=== PATIENT | female | born 1960 | race Caucasian/White ===

== ENCOUNTER → 2016-08-23 | Outpatient (CLI) | payer OTHER ==
[~2016-08-23] MED LIST: ASPI325T OR; ISOS30BRAN OR; LISI40TA OR; LOPR50TA OR; NITR0.4S SL; RED YEAST PO; XANA0.5T OR; ZOCO40TA OR
== END ==
LOC: M WUC 11:15
PROVIDERS: ATTEND Family Medicine
DX: E11.9 Type 2 diabetes mellitus without complications (principal)

== ENCOUNTER → 2016-12-14 | Outpatient (CLI) | payer OTHER ==
[2016-12-17 00:06] LABS: NORDOXEPIN 26 ng/mL (Not Estab.); TOTAL (DOX+NORDOX) 49 ng/mL (50-150)
== END ==
LOC: M WUC 10:49
PROVIDERS: ATTEND Psychiatry & Neurology Psychiatry
DX: F41.9 Anxiety disorder, unspecified (principal)

== ENCOUNTER → 2017-06-16 | Outpatient (REF) | payer OTHER | LOC: M SFHCPLAZ 09:36 | DX: E11.9 Type 2 diabetes mellitus without complications (principal); E78.4 Other hyperlipidemia ==

== ENCOUNTER → 2017-07-05 | Outpatient (CLI) | payer OTHER | LOC: M RAD 14:01 | DX: Z12.2 Encounter for screening for malignant neoplasm of respiratory organs (principal); R91.8 Other nonspecific abnormal finding of lung field; F17.200 Nicotine dependence, unspecified, uncomplicated | CPT/HCPCS: G0297 ==

== ENCOUNTER → 2017-08-01 | Outpatient (REF) | payer OTHER | LOC: M SFHCPLAZ 11:47 | DX: G90.09 Other idiopathic peripheral autonomic neuropathy (principal) ==

== ENCOUNTER → 2017-08-08 | Outpatient (CLI) | payer OTHER ==
[2017-08-08 17:45] LABS: ALBUMIN 3.7 GM/DL (3.2-5.2); ALBUMIN/GLOBULIN RATIO 1.28 (1.00-1.93); ALKALINE PHOSPHATASE 68 U/L (45-117); ALT/SGPT 29 U/L (12-78); ANION GAP 3 MEQ/L (8-16); AST/SGOT 21 U/L (7-37); BILIRUBIN,TOTAL 0.2 MG/DL (0.2-1.0); BLOOD UREA NITROGEN 14 MG/DL (7-18); CALCIUM LEVEL 8.5 MG/DL (8.5-10.1); CARBON DIOXIDE LEVEL 30 MEQ/L (21-32); CHLORIDE LEVEL 109 MEQ/L (98-107); CREATININE FOR GFR 0.86 MG/DL (0.55-1.30); FREE T4 0.71 NG/DL (0.76-1.46); GLOMERULAR FILTRATION RATE > 60.0 (>51); GLUCOSE, FASTING 73 MG/DL (70-100); POTASSIUM SERUM 4.8 MEQ/L (3.5-5.1); SODIUM LEVEL 142 MEQ/L (136-145); TOTAL PROTEIN 6.6 GM/DL (6.4-8.2)
[2017-08-08 17:47] LABS: BASO % 0.3 % (0.0-1.0); EOS # 0.5 10^3/uL (0.0-0.50); EOS % 4.3 % (0.0-3.0); HEMATOCRIT 39.2 % (36.0-47.0); HEMOGLOBIN 12.2 g/dl (12.0-16.0); IMMATURE GRANULOCYTE % 0.4 % (0-3.0); LYMPH # 4.2 10^3/uL (1.5-4.5); MEAN CORPUSCULAR HEMOGLOBIN 29.3 pg (27.0-33.0); MEAN CORPUSCULAR HGB CONC 31.1 g/dl (32.0-36.5); MONO # 0.6 10^3/uL (0.0-0.8); MONO % 5.7 % (0.0-5.0); NEUTROPHILS # 5.5 10^3/uL (1.8-7.7); NEUTROPHILS % 50.3 % (36.0-66.0); PLATELET COUNT, AUTOMATED 235 10^3/uL (150-450); RED BLOOD COUNT 4.17 10^6/uL (4.00-5.40); RED CELL DISTRIBUTION WIDTH 12.5 % (11.5-14.5); WHITE BLOOD COUNT 10.9 10^3/uL (4.0-10.0)
[2017-08-08 18:30] LABS: ESTIMATED AVERAGE GLUCOSE 186 MG/DL (60-110); HEMOGLOBIN A1c 8.1 %
[2017-08-08 19:45] LABS: VITAMIN B12 LEVEL 184 PG/ML (247-911)
== END ==
LOC: M WUC 13:58
DX: G62.89 Other specified polyneuropathies (principal); E11.9 Type 2 diabetes mellitus without complications
CPT/HCPCS: 84443

== ENCOUNTER → 2017-08-08 | Outpatient (CLI) | payer OTHER ==
[2017-08-11 00:07] LABS: DOXEPIN 33 ng/mL (Not Estab.); NORDOXEPIN 34 ng/mL (Not Estab.); TOTAL (DOX+NORDOX) 67 ng/mL (50-150)
== END ==
LOC: M WUC 14:03
DX: F31.30 Bipolar disorder, current episode depressed, mild or moderate severity, unspecified (principal)
CPT/HCPCS: 80335

== ENCOUNTER 2017-10-18 18:50 | Emergency (ER) | payer OTHER ==
[2017-10-18 19:49] LABS: BEDSIDE GLUCOSE 166 MG/DL (70-105)
[2017-10-18 20:37] LABS: BASO % 0.2 % (0.0-1.0); EOS # 0.8 10^3/uL (0.0-0.50); EOS % 5.9 % (0.0-3.0); HEMATOCRIT 40.7 % (36.0-47.0); HEMOGLOBIN 12.9 g/dl (12.0-15.5); IMMATURE GRANULOCYTE % 0.4 % (0-3.0); LYMPH # 4.5 10^3/uL (1.5-4.5); LYMPH % 32.8 % (24.0-44.0); MEAN CORPUSCULAR HEMOGLOBIN 28.4 pg (27.0-33.0); MEAN CORPUSCULAR HGB CONC 31.7 g/dl (32.0-36.5); MEAN CORPUSCULAR VOLUME 89.6 fl (80.0-96.0); MONO # 1.1 10^3/uL (0.0-0.8); NEUTROPHILS # 7.2 10^3/uL (1.8-7.7); NEUTROPHILS % 52.7 % (36.0-66.0); PLATELET COUNT, AUTOMATED 312 10^3/uL (150-450); RED BLOOD COUNT 4.54 10^6/uL (4.00-5.40); RED CELL DISTRIBUTION WIDTH 12.8 % (11.5-14.5); WHITE BLOOD COUNT 13.6 10^3/uL (4.0-10.0)
[2017-10-18] MEDS: KETOROLAC 30 MG/ML VIAL (J1885) IV (20:43)
[2017-10-18] MEDS: NS 1,000 ML IV (20:43)
[2017-10-18 20:45] LABS: KETONE, URINE AUTO RFX NEGATIVE (NEGATIVE); NITRITE, URINE AUTO RFX NEGATIVE (NEGATIVE); RBC, URINE AUTO RFX 3 /HPF (0-3); SQUAM EPITHELIAL CELL UR AURFX 2 /HPF (0-6)
[2017-10-18 20:46] LABS: LEUKOCYTE ESTERASE UR AUTO RFX 2+ (NEGATIVE); WBC, URINE AUTO RFX 16 /HPF (0-3)
[2017-10-18 21:21] LABS: ALBUMIN/GLOBULIN RATIO 1.11 (1.00-1.93); ALKALINE PHOSPHATASE 88 U/L (45-117); ALT/SGPT 21 U/L (12-78); ANION GAP 7 MEQ/L (8-16); AST/SGOT 13 U/L (7-37); BILIRUBIN,DIRECT < 0.1 MG/DL (0.0-0.2); BILIRUBIN,TOTAL 0.2 MG/DL (0.2-1.0); BLOOD UREA NITROGEN 13 MG/DL (7-18); CALCIUM LEVEL 8.9 MG/DL (8.5-10.1); CARBON DIOXIDE LEVEL 29 MEQ/L (21-32); CHLORIDE LEVEL 104 MEQ/L (98-107); CREATININE FOR GFR 1.03 MG/DL (0.55-1.30); GLOMERULAR FILTRATION RATE 58.8 (>51); GLUCOSE, FASTING 155 MG/DL (70-100); LIPASE 255 U/L (73-393); POTASSIUM SERUM 4.3 MEQ/L (3.5-5.1); SODIUM LEVEL 140 MEQ/L (136-145); TOTAL PROTEIN 7.6 GM/DL (6.4-8.2)
[2017-10-18] MEDS ORDERED: CIPROFLOXACIN 500 MG TAB PO (22:00)
== END 2017-10-18 22:06 | disposition home or self-care (01) ==
LOC: M ED 18:50
DX: N30.00 Acute cystitis without hematuria (principal); K59.00 Constipation, unspecified; E11.9 Type 2 diabetes mellitus without complications; I10 Essential (primary) hypertension; F33.9 Major depressive disorder, recurrent, unspecified; F41.9 Anxiety disorder, unspecified; F17.210 Nicotine dependence, cigarettes, uncomplicated; Z86.69 Personal history of other diseases of the nervous system and sense organs; Z98.890 Other specified postprocedural states; Z79.82 Long term (current) use of aspirin
CPT/HCPCS: J1885

== ENCOUNTER 2017-11-27 16:19 | Emergency (ER) | payer OTHER ==
[2017-11-27] MEDS: NORCO, ANEXSIA 5/325MG TABLET (HYDROcodone/ACETAMINOPHEN) PO (17:37)
[2017-11-27 17:54] LABS: HEMATOCRIT 41.5 % (36.0-47.0); HEMOGLOBIN 13.4 g/dl (12.0-15.5); MEAN CORPUSCULAR HEMOGLOBIN 29.1 pg (27.0-33.0); MEAN CORPUSCULAR HGB CONC 32.3 g/dl (32.0-36.5); PLATELET COUNT, AUTOMATED 246 10^3/uL (150-450); RED BLOOD COUNT 4.61 10^6/uL (4.00-5.40); RED CELL DISTRIBUTION WIDTH 13.2 % (11.5-14.5); WHITE BLOOD COUNT 17.3 10^3/uL (4.0-10.0)
[2017-11-27 18:29] LABS: ACETAMINOPHEN LEVEL < 2.0 UG/ML (10.0-30.0); ALBUMIN/GLOBULIN RATIO 1.08 (1.00-1.93); ALKALINE PHOSPHATASE 71 U/L (45-117); ALT/SGPT 31 U/L (12-78); ANION GAP 6 MEQ/L (8-16); AST/SGOT 17 U/L (7-37); BILIRUBIN,DIRECT < 0.1 MG/DL (0.0-0.2); BILIRUBIN,TOTAL 0.3 MG/DL (0.2-1.0); BLOOD UREA NITROGEN 17 MG/DL (7-18); CALCIUM LEVEL 8.6 MG/DL (8.5-10.1); CARBON DIOXIDE LEVEL 27 MEQ/L (21-32); CHLORIDE LEVEL 108 MEQ/L (98-107); CREATININE FOR GFR 1.21 MG/DL (0.55-1.30); ETHYL ALCOHOL (ETHANOL) 0.003 % (0.000-0.010); GLOMERULAR FILTRATION RATE 48.8 (>51); GLUCOSE, FASTING 127 MG/DL (70-100); POTASSIUM SERUM 4.6 MEQ/L (3.5-5.1); SALICYLATE LEVEL 5.6 MG/DL (5.0-30.0); SODIUM LEVEL 141 MEQ/L (136-145); TOTAL PROTEIN 7.7 GM/DL (6.4-8.2)
[2017-11-27 19:42] LABS: KETONE, URINE AUTO RFX TRACE mg/dL (NEGATIVE); MUCUS, URINE RFX SMALL (NEGATIVE); NITRITE, URINE AUTO RFX NEGATIVE (NEGATIVE); RBC, URINE AUTO RFX 2 /HPF (0-3); SPECIFIC GRAVITY UR AUTO RFX 1.023 (1.002-1.035); SQUAM EPITHELIAL CELL UR AURFX 1 /HPF (0-6); WBC, URINE AUTO RFX 10 /HPF (0-3)
[2017-11-27 19:49] LABS: LEUKOCYTE ESTERASE UR AUTO RFX 2+ (NEGATIVE)
[2017-11-27 19:54] LABS: AMPHETAMINES LEVEL URINE NEGATIVE (NEGATIVE); BARBITURATES URINE NEGATIVE (NEGATIVE); BENZODIAZEPINES URINE POSITIVE (NEGATIVE); CANNABINOIDS URINE POSITIVE (NEGATIVE); COCAINE METABOLITE URINE NEGATIVE (NEGATIVE); METHADONE URINE NEGATIVE (NEGATIVE); OPIATES URINE POSITIVE (NEGATIVE); PHENCYCLIDINE URINE NEGATIVE (NEGATIVE)
[2017-11-27] MEDS ORDERED: LORazepam 0.5 MG TAB PO (19:54)
== END 2017-11-27 21:00 | disposition left against medical advice (07) ==
LOC: M ED 16:19
DX: F41.9 Anxiety disorder, unspecified (principal); M25.551 Pain in right hip; M25.552 Pain in left hip; S90.512A Abrasion, left ankle, initial encounter; W10.8XXA Fall (on) (from) other stairs and steps, initial encounter; Y92.89 Other specified places as the place of occurrence of the external cause; M54.5 Low back pain; I10 Essential (primary) hypertension; F32.9 Major depressive disorder, single episode, unspecified; E11.9 Type 2 diabetes mellitus without complications; F17.210 Nicotine dependence, cigarettes, uncomplicated; Z79.899 Other long term (current) drug therapy; Z79.84 Long term (current) use of oral hypoglycemic drugs
CPT/HCPCS: 72170

== ENCOUNTER → 2017-12-31 | Outpatient (CLI) | payer OTHER ==
[2017-12-31 18:38] LABS: ALBUMIN 4.1 GM/DL (3.2-5.2); ALBUMIN/GLOBULIN RATIO 1.14 (1.00-1.93); ALKALINE PHOSPHATASE 64 U/L (45-117); ALT/SGPT 27 U/L (12-78); ANION GAP 9 MEQ/L (8-16); AST/SGOT 16 U/L (7-37); BILIRUBIN,TOTAL 0.3 MG/DL (0.2-1.0); BLOOD UREA NITROGEN 8 MG/DL (7-18); CALCIUM LEVEL 8.8 MG/DL (8.5-10.1); CARBON DIOXIDE LEVEL 27 MEQ/L (21-32); CHLORIDE LEVEL 103 MEQ/L (98-107); CHOLESTEROL LEVEL 151 MG/DL (<200); CHOLESTEROL RISK RATIO 2.516 (<5); GLOMERULAR FILTRATION RATE > 60.0 (>51); GLUCOSE, FASTING 149 MG/DL (70-100); HDL CHOLESTEROL 60 MG/DL (>40); LDL CHOLESTEROL 71.2 MG/DL (<100); NON-HDL-C 91 MG/DL; POTASSIUM SERUM 4.4 MEQ/L (3.5-5.1); SODIUM LEVEL 139 MEQ/L (136-145); TOTAL PROTEIN 7.7 GM/DL (6.4-8.2); TRIGLYCERIDES LEVEL 99 MG/DL (<150)
[2017-12-31 18:43] LABS: ESTIMATED AVERAGE GLUCOSE 146 MG/DL (60-110); HEMOGLOBIN A1c 6.7 %
[2017-12-31 18:46] LABS: CREATININE, URINE 33.1 MG/DL; MALB URINE SIEMENS < 5.0 MG/L; MAU/CREAT RATIO 15.1 MCG/MG (0.0-30.0)
== END ==
LOC: M WUC 11:36
DX: E11.9 Type 2 diabetes mellitus without complications (principal); E78.4 Other hyperlipidemia
CPT/HCPCS: 80053

== ENCOUNTER → 2017-12-31 | Outpatient (CLI) | payer OTHER ==
[2017-12-31 18:37] LABS: RHEUMATOID FACTOR QUANT < 10.0 IU/ML (<15.0); TOTAL PROTEIN 7.6 GM/DL (6.4-8.2)
[2017-12-31 18:43] LABS: ESTIMATED AVERAGE GLUCOSE 148 MG/DL (60-110); HEMOGLOBIN A1c 6.8 %
[2017-12-31 19:50] LABS: ERYTHROCYTE SEDIMENTATION RATE 8 mm/hr (0-30)
[2018-01-02 09:51] LABS: FOLATE > 24.0 NG/ML (>5.4); VITAMIN B12 LEVEL > 2000 PG/ML (247-911)
[2018-01-03 14:34] LABS: ALBUMIN 4.54 GM/DL (3.29-5.55); ALBUMIN % 59.7 % (55.8-66.1); ALPHA-1-GLOBULIN % 4.1 % (2.9-4.9); ALPHA-1-GLOBULINS 0.31 GM/DL (0.17-0.41); ALPHA-2-GLOBULINS % 13.2 % (7.1-11.8); BETA-1-GLOBULINS % 5.6 % (4.7-7.2); BETA-2-GLOBULINS % 4.1 % (3.2-6.5); GAMMA GLOBULIN % 13.3 % (11.1-18.8)
[2018-01-03 14:35] LABS: BETA-1-GLOBULINS 0.43 GM/DL (0.28-0.60); BETA-2-GLOBULINS 0.31 GM/DL (0.19-0.55); GAMMA GLOBULINS 1.01 GM/DL (0.65-1.58)
[2018-01-07 14:50] LABS: ANTI DOUBLE STRAND-DNA AB <1 IU/mL (0-9); ANTINUCLEAR ANTIBODIES DIRECT Negative (Negative); CERULOPLASMIN 22.8 mg/dL (19.0-39.0); COPPER PLASMA 110 ug/dL (72-166); LEAD BLOOD ADULT 1 ug/dL (0-4); MERCURY LEVEL None Detected ug/L (0.0-14.9); SJOGREN'S ANTI SS-A <0.2 AI (0.0-0.9); SJOGREN'S ANTI SS-B <0.2 AI (0.0-0.9); VITAMIN B1 LEVEL WHOLE BLOOD 143.8 nmol/L (66.5-200.0); VITAMIN B6,PYRIDOXAL PHOSPHATE 9.1 ug/L (2.0-32.8); VITAMIN E(ALPHA TOCOPHEROL) 10.5 mg/L (7.0-25.1)
== END ==
LOC: M WUC 11:29
DX: G61.9 Inflammatory polyneuropathy, unspecified (principal)
CPT/HCPCS: 82525

== ENCOUNTER → 2019-02-21 | Outpatient (CLI) | payer OTHER ==
[~2019-02-21] MED LIST changes: +AMBI10TA PO; +CIPR-249 PO; +DOXE25CA PO; +GABA600T4 PO; +LOVA40TA PO; +LYRI150C PO; +METF10004 PO; +REDCAP9 PO; +VITA-112 PO; +ZOFR4TAB14 SL
[2019-02-24 00:13] LABS: DOXEPIN 106 ng/mL (Not Estab.)
== END ==
LOC: M WUC 09:27
PROVIDERS: ATTEND Psychiatry & Neurology Psychiatry
DX: F41.1 Generalized anxiety disorder (principal)
CPT/HCPCS: 36415; G0480

== ENCOUNTER 2020-01-31 18:38 | Emergency (ER) | payer OTHER ==
[~2020-01-31] VITALS: Ht 162.6 cm; Wt 70.4 kg
[2020-01-31] MEDS ORDERED: RISP0.5T3 (18:48)
[2020-01-31] MEDS ORDERED: GABA-843 (18:48)
[2020-01-31] MEDS ORDERED: PREG150C (18:48)
[2020-01-31] MEDS ORDERED: ZOLP10TA2 (18:48)
[2020-01-31] MEDS ORDERED: DOXE100CA (18:48)
[2020-01-31] MEDS ORDERED: ESCI20TA (18:48)
[2020-01-31] MEDS ORDERED: lisinopriL 20 MG TAB PO ONE (19:30)
[2020-01-31] MEDS ORDERED: NS 1,000 ML IV ONE (19:30)
[2020-01-31] MEDS ORDERED: HumuLIN R (REGULAR) INSULIN (NovoLIN R) **100U/ML** PER UNIT IV ONE ×2 (19:30→21:00)
[2020-01-31 20:16] VITALS: BP 163/106
[2020-01-31 20:30] LABS: VENOUS HCO3 23.5 MEQ/L (23.0-27.0); VENOUS O2 SATURATION 97.4 % (60.0-80.0); VENOUS PARTIAL PRESSURE CO2 42.9 mmHg (38.0-50.0); VENOUS PARTIAL PRESSURE O2 99.7 mmHg (30.0-50.0); VENOUS PH 7.357 UNITS (7.330-7.430); VENOUS STANDARD HCO3 22.8 MEQ/L; VENOUS TOTAL CO2 24.8 MEQ/L (24.0-28.0)
[2020-01-31 20:34] LABS: BASO # 0.1 10^3/uL (0.0-0.2); BASO % 0.4 % (0.0-1.0); EOS # 0.3 10^3/uL (0.0-0.5); EOS % 2.4 % (0.0-3.0); HEMATOCRIT 38.2 % (36.0-47.0); HEMOGLOBIN 12.7 g/dl (12.0-15.5); LYMPH # 3.8 10^3/uL (1.5-5.0); LYMPH % 31.6 % (24.0-44.0); MEAN CORPUSCULAR HEMOGLOBIN 28.9 pg (27.0-33.0); MEAN CORPUSCULAR HGB CONC 33.2 g/dl (32.0-36.5); MONO # 0.8 10^3/uL (0.0-0.8); MONO % 6.6 % (0.0-5.0); NEUTROPHILS % 58.2 % (36.0-66.0); PLATELET COUNT, AUTOMATED 221 10^3/uL (150-450); RED BLOOD COUNT 4.39 10^6/uL (4.00-5.40); WHITE BLOOD COUNT 12.1 10^3/uL (4.0-10.0)
[2020-01-31 20:44] LABS: AMPHETAMINES LEVEL URINE NEGATIVE (NEGATIVE); BARBITURATES URINE NEGATIVE (NEGATIVE); BENZODIAZEPINES URINE NEGATIVE (NEGATIVE); CANNABINOIDS URINE NEGATIVE (NEGATIVE); COCAINE METABOLITE URINE NEGATIVE (NEGATIVE); METHADONE URINE NEGATIVE (NEGATIVE); OPIATES URINE NEGATIVE (NEGATIVE); PHENCYCLIDINE URINE NEGATIVE (NEGATIVE)
[2020-01-31 20:52] LABS: OSMOLALITY SERUM 301 MOSM/KG (275-295)
[2020-01-31] MEDS ORDERED: metFORMIN (GLUCOPHAGE) 1000 MG TABLET PO ONE (21:00)
[2020-01-31 21:05] LABS: ACETONE/KETONE 2.37 MG/DL (<2.81); ALBUMIN 3.8 GM/DL (3.2-5.2); ALT/SGPT 72 U/L (12-78); BILIRUBIN,DIRECT 0.1 MG/DL (0.0-0.2); BILIRUBIN,TOTAL 0.2 MG/DL (0.2-1.0); BLOOD UREA NITROGEN 20 MG/DL (7-18); CALCIUM LEVEL 9.3 MG/DL (8.5-10.1); CARBON DIOXIDE LEVEL 25 MEQ/L (21-32); CHLORIDE LEVEL 92 MEQ/L (98-107); CK-MB VALUE MASS 1.4 NG/ML (<3.6); CPK CREATINE PHOSPHOKINASE 319 U/L (26-192); CREATININE FOR GFR 1.33 MG/DL (0.55-1.30); ETHYL ALCOHOL (ETHANOL) < 0.003 % (0.000-0.010); GLOMERULAR FILTRATION RATE 43.5 (>51); GLUCOSE, FASTING 553 MG/DL (70-100); LIPASE 367 U/L (73-393); MB/CK RELATIVE INDEX 0.44 (< OR =4); POTASSIUM SERUM 4.6 MEQ/L (3.5-5.1); SODIUM LEVEL 126 MEQ/L (136-145); TOTAL PROTEIN 7.6 GM/DL (6.4-8.2); TROPONIN I < 0.02 NG/ML (< 0.10)
[2020-01-31 21:31] LABS: ESTIMATED AVERAGE GLUCOSE 355 MG/DL (60-110)
[2020-01-31 21:33] LABS: HEMOGLOBIN A1c > 14.0 %
[2020-01-31 21:40] VITALS: BP 119/75
[2020-01-31] MEDS ORDERED: LISI10TA4 PO (21:54)
[2020-01-31] MEDS ORDERED: METF500T13 PO (21:54)
== END 2020-01-31 22:10 | disposition home or self-care (01) ==
LOC: M ED 18:38
DX: E11.65 Type 2 diabetes mellitus with hyperglycemia (principal); I11.9 Hypertensive heart disease without heart failure; R00.0 Tachycardia, unspecified; F17.200 Nicotine dependence, unspecified, uncomplicated; Z91.14 Patient's other noncompliance with medication regimen; Z79.899 Other long term (current) drug therapy
CPT/HCPCS: 80048; 80076; 80307; 81001; 82010; 82550; 82553; 82803; 83036; 83690; 83930; 85025; 87086; 93041; 96361; 96374; 96376; 99284; G0480

== ENCOUNTER → 2020-05-12 | Outpatient (REF) | payer OTHER, MEDICAID, MEDICARE ==
[~2020-05-12] MED LIST changes: +DOXE100CA; +ESCI20TA; +GABA-843; +LISI10TA4 PO; +METF500T13 PO; +PREG150C; +RISP-7; +ZOLP10TA2
[2020-05-12 14:42] LABS: BASO # 0.1 10^3/uL (0.0-0.2); BASO % 0.3 % (0.0-1.0); EOS # 0.4 10^3/uL (0.0-0.5); EOS % 2.8 % (0.0-3.0); HEMATOCRIT 47.9 % (36.0-47.0); HEMOGLOBIN 14.9 g/dl (12.0-15.5); MEAN CORPUSCULAR HGB CONC 31.1 g/dl (32.0-36.5); MONO # 0.8 10^3/uL (0.0-0.8); MONO % 5.7 % (0.0-5.0); NEUTROPHILS % 69.8 % (36.0-66.0); PLATELET COUNT, AUTOMATED 261 10^3/uL (150-450); RED BLOOD COUNT 5.32 10^6/uL (4.00-5.40); WHITE BLOOD COUNT 14.4 10^3/uL (4.0-10.0)
[2020-05-12 15:12] LABS: CALCIUM LEVEL 9.3 MG/DL (8.8-10.2); CREATININE FOR GFR 1.42 MG/DL (0.55-1.30); GLOMERULAR FILTRATION RATE 40.2 (>45); POTASSIUM SERUM 4.7 MEQ/L (3.5-5.1)
== END ==
LOC: M SFHCPLAZ 12:07
PROVIDERS: ATTEND Family Medicine
DX: R00.0 Tachycardia, unspecified (principal)
CPT/HCPCS: 36415; 80048; 85025; G0463

== ENCOUNTER → 2020-05-28 | Outpatient (CLI) | payer OTHER, MEDICAID ==
[~2020-05-28] MED LIST changes: -ESCI20TA; +ESCI20TA16; +GABA-282; -GABA-843
--- NOTE | 2020-05-28 10:16 | REP ---
INDICATION: FLANK PAIN COMPARISON: 10/18/2017 TECHNIQUE: Axial noncontrast images from the lung bases to the pubic symphysis with coronal and sagittal reformations. This CT examination was performed using the following dose reduction techniques: Automated exposure control, adjustment of mA and/or kv according to the patient's size, and use of iterative reconstruction technique. FINDINGS: Liver is mildly enlarged and suggests fatty infiltration. Spleen, gallbladder, pancreas, bilateral adrenal glands and kidneys are essentially normal. Specifically, no perinephric stranding, hydroureteronephrosis, intrarenal or obstructing ureteral calculi are identified. The enteric system is without obstruction or acute inflammatory process. Pelvis demonstrates normal bladder and evidence for prior hysterectomy. Phleboliths noted in the pelvis. No ascites. No free air. No adenopathy. Atherosclerotic changes to the aorta noted without aneurysm. Musculoskeletal structures demonstrate degenerative changes. Lung bases are clear. IMPRESSION: Mild hepatomegaly and hepatosteatosis suggested. Normal appearance of the urinary tract system by noncontrast evaluation. <Electronically signed by Luis Antonio Thomason > 05/28/20 1012
== END ==
LOC: M RAD 09:34
PROVIDERS: ATTEND Family Medicine
DX: R10.9 Unspecified abdominal pain (principal)

== ENCOUNTER → 2020-07-11 | Outpatient (REF) | payer OTHER, MEDICAID, MEDICARE ==
[~2020-07-11] MED LIST changes: +LISI10TA22 PO; -LISI10TA4 PO
[2020-07-11 12:56] LABS: ALBUMIN 3.7 GM/DL (3.2-5.2); ALT/SGPT 31 U/L (12-78); BILIRUBIN,TOTAL 0.2 MG/DL (0.2-1.0); BLOOD UREA NITROGEN 16 MG/DL (7-18); CARBON DIOXIDE LEVEL 26 MEQ/L (21-32); CHLORIDE LEVEL 103 MEQ/L (98-107); CHOLESTEROL LEVEL 209 MG/DL (<200); CHOLESTEROL RISK RATIO 4.265 (<5); CREATININE FOR GFR 0.92 MG/DL (0.55-1.30); GLOMERULAR FILTRATION RATE > 60.0 (>45); GLUCOSE, FASTING 160 MG/DL (70-100); HDL CHOLESTEROL 49 MG/DL (>40); LDL CHOLESTEROL 119 MG/DL (<100); NON-HDL-C 160 MG/DL; POTASSIUM SERUM 5.3 MEQ/L (3.5-5.1); SODIUM LEVEL 136 MEQ/L (136-145); TOTAL 25(OH) VITAMIN D 48.6 NG/ML (30.0-100.0); TOTAL PROTEIN 7.1 GM/DL (6.4-8.2); TRIGLYCERIDES LEVEL 203 MG/DL (<150)
== END ==
LOC: M SFHCPLAZ 09:23
PROVIDERS: ATTEND Family Medicine
DX: E55.9 Vitamin D deficiency, unspecified (principal); E11.9 Type 2 diabetes mellitus without complications; E78.5 Hyperlipidemia, unspecified; I10 Essential (primary) hypertension; R00.0 Tachycardia, unspecified

== ENCOUNTER → 2020-07-25 | Outpatient (REF) | payer OTHER, MEDICAID, MEDICARE ==
[2020-07-25 14:28] LABS: BLOOD UREA NITROGEN 26 MG/DL (7-18); CALCIUM LEVEL 9.3 MG/DL (8.8-10.2); CARBON DIOXIDE LEVEL 31 MEQ/L (21-32); CHLORIDE LEVEL 106 MEQ/L (98-107); CREATININE FOR GFR 0.95 MG/DL (0.55-1.30); GLOMERULAR FILTRATION RATE > 60.0 (>45); GLUCOSE, FASTING 182 MG/DL (70-100); POTASSIUM SERUM 4.7 MEQ/L (3.5-5.1); SODIUM LEVEL 139 MEQ/L (136-145)
[2020-07-25 14:39] LABS: MAU/CREAT RATIO 19.7 MCG/MG (0.0-30.0)
== END ==
LOC: M SFHCPLAZ 11:19
PROVIDERS: ATTEND Family Medicine
DX: E11.65 Type 2 diabetes mellitus with hyperglycemia (principal); E87.5 Hyperkalemia
CPT/HCPCS: 36415; 80048; 82043; G0463

== ENCOUNTER → 2021-06-24 | Outpatient (CLI) | payer OTHER, MEDICAID ==
[2021-06-24 12:49] LABS: MALB URINE SIEMENS 68.6 MG/L; MAU/CREAT RATIO 42.6 MCG/MG (0.0-30.0)
[2021-06-24 13:18] LABS: ALBUMIN 3.7 GM/DL (3.2-5.2); ALT/SGPT 30 U/L (12-78); BILIRUBIN,TOTAL 0.1 MG/DL (0.2-1.0); BLOOD UREA NITROGEN 20 MG/DL (7-18); CALCIUM LEVEL 9.7 MG/DL (8.8-10.2); CARBON DIOXIDE LEVEL 28 MEQ/L (21-32); CHLORIDE LEVEL 105 MEQ/L (98-107); CHOLESTEROL LEVEL 209 MG/DL (<200); CHOLESTEROL RISK RATIO 4.098 (<5); CREATININE FOR GFR 0.87 MG/DL (0.55-1.30); GLOMERULAR FILTRATION RATE > 60.0 (>45); GLUCOSE, FASTING 92 MG/DL (70-100); HDL CHOLESTEROL 51 MG/DL (>40); LDL CHOLESTEROL 129 MG/DL (<100); NON-HDL-C 158 MG/DL; POTASSIUM SERUM 4.8 MEQ/L (3.5-5.1); SODIUM LEVEL 139 MEQ/L (136-145); TRIGLYCERIDES LEVEL 144 MG/DL (<150)
== END ==
LOC: M WUC 09:29
PROVIDERS: ATTEND Family Medicine
DX: E11.9 Type 2 diabetes mellitus without complications (principal); I10 Essential (primary) hypertension; E78.5 Hyperlipidemia, unspecified

== ENCOUNTER → 2021-12-02 | Outpatient (CLI) | payer OTHER ==
[2021-12-02 16:07] LABS: BILIRUBIN,TOTAL 0.3 MG/DL (0.2-1.0); CALCIUM LEVEL 9.6 MG/DL (8.8-10.2); CHOLESTEROL RISK RATIO 5.204 (<5); CREATININE FOR GFR 1.02 MG/DL (0.55-1.30); GLOMERULAR FILTRATION RATE 58.7 (>45); POTASSIUM SERUM 4.8 MEQ/L (3.5-5.1); TOTAL PROTEIN 7.7 GM/DL (6.4-8.2)
[2021-12-02 16:13] LABS: MALB URINE SIEMENS 56.3 MG/L
== END ==
LOC: M PLALAB 08:56
PROVIDERS: ATTEND Family Medicine
DX: E78.5 Hyperlipidemia, unspecified (principal); E11.9 Type 2 diabetes mellitus without complications; I10 Essential (primary) hypertension

== ENCOUNTER → 2021-12-02 | Outpatient (CLI) | payer OTHER ==
[2021-12-02 16:25] LABS: HEMOGLOBIN A1c 6.4 %
== END ==
LOC: M PLALAB 09:00
PROVIDERS: ATTEND Student in an Organized Health Care Education/Training Program
DX: E11.9 Type 2 diabetes mellitus without complications (principal)

== ENCOUNTER → 2022-02-12 | Outpatient (REF) | payer OTHER, MEDICAID, MEDICARE | LOC: M SFHCPLAZ 16:48 | PROVIDERS: ATTEND Student in an Organized Health Care Education/Training Program | DX: H61.91 Disorder of right external ear, unspecified (principal) ==

== ENCOUNTER → 2022-07-29 | Outpatient (CLI) | payer OTHER ==
[2022-07-29 11:28] LABS: CHOLESTEROL RISK RATIO 2.37 (<5); HDL CHOLESTEROL 48.4 MG/DL (>40); LDL CHOLESTEROL 52.8 MG/DL (<100); NON-HDL-C 66.6 MG/DL
[2022-07-29 12:11] LABS: HEMOGLOBIN A1c 7.1 % (4.0-6.0)
== END ==
LOC: M PLALAB 08:41
PROVIDERS: ATTEND Student in an Organized Health Care Education/Training Program
DX: E11.9 Type 2 diabetes mellitus without complications (principal)

== ENCOUNTER 2023-03-17 08:55 | Emergency (ER) | payer OTHER ==
[~2023-03-17] VITALS: Ht 162.6 cm; Wt 63.5 kg
[~2023-03-17 08:55] MED LIST changes: -PREG150C; +PREG150C2
[2023-03-17] MEDS ORDERED: KETOROLAC 30 MG/ML 1ML VIAL IV ONE (09:10)
[2023-03-17] MEDS ORDERED: METOCLOPRAMIDE INJ 10MG/2ML VIAL IV ONE (09:10)
[2023-03-17] MEDS ORDERED: NS 1,000 ML IV ONE ×2 (09:10→10:40)
[2023-03-17 09:14] VITALS: TEMP 98.9
[2023-03-17 09:30] LABS: BASO # 0.1 10^3/uL (0.0-0.2); BASO % 0.4 % (0.0-1.0); EOS # 0.2 10^3/uL (0.0-0.5); EOS % 1.2 % (0.0-3.0); HEMATOCRIT 43.3 % (36.0-47.0); HEMOGLOBIN 14.2 g/dl (12.0-15.5); LYMPH # 2.4 10^3/uL (1.5-5.0); LYMPH % 16.4 % (24.0-44.0); MEAN CORPUSCULAR HEMOGLOBIN 29.4 pg (27.0-33.0); MEAN CORPUSCULAR HGB CONC 32.8 g/dl (32.0-36.5); MEAN CORPUSCULAR VOLUME 89.6 fl (80.0-96.0); MONO # 0.9 10^3/uL (0.0-0.8); MONO % 5.8 % (2.0-8.0); NEUTROPHILS # 11.3 10^3/uL (1.5-8.5); NEUTROPHILS % 75.7 % (36.0-66.0); RED BLOOD COUNT 4.83 10^6/uL (4.00-5.40); WHITE BLOOD COUNT 14.9 10^3/uL (4.0-10.0)
[2023-03-17 10:34] LABS: LIPASE 166 U/L (12-53)
[2023-03-17 10:36] LABS: ALBUMIN 3.3 G/DL (3.2-5.2); ALKALINE PHOSPHATASE 76 U/L (46-116); ALT/SGPT 25 U/L (7.0-40); AST/SGOT 14 U/L (<34); BILIRUBIN,DIRECT < 0.1 MG/DL (<0.4); BILIRUBIN,TOTAL 0.2 MG/DL (0.3-1.2); BLOOD UREA NITROGEN 21 MG/DL (9-23); CALCIUM LEVEL 8.5 MG/DL (8.3-10.6); CARBON DIOXIDE LEVEL 25 MMOL/L (20-31); CHLORIDE LEVEL 102 MMOL/L (98-107); CREATININE FOR GFR 0.86 MG/DL (0.55-1.30); GLOMERULAR FILTRATION RATE > 60.0 (>45); GLUCOSE, FASTING 215 MG/DL (74-106); POTASSIUM SERUM 4.6 MMOL/L (3.5-5.1); SODIUM LEVEL 135 MMOL/L (136-145); TOTAL PROTEIN 6.3 G/DL (5.7-8.2)
[2023-03-17] MEDS ORDERED: ISOVUE-370 76% 100ML VIAL As Ordered ONE (10:48)
[2023-03-17 10:59] LABS: CPK CREATINE PHOSPHOKINASE 48 U/L (34-145)
[2023-03-17 12:30] VITALS: BP 129/64; O2SAT 98
== END 2023-03-17 12:49 | disposition home or self-care (01) ==
LOC: M ED 08:55 → EDBD 08:55 → M ED 12:49
DX: K85.90 Acute pancreatitis without necrosis or infection, unspecified (principal); R11.10 Vomiting, unspecified; E11.9 Type 2 diabetes mellitus without complications; I10 Essential (primary) hypertension; F43.10 Post-traumatic stress disorder, unspecified; Z86.19 Personal history of other infectious and parasitic diseases; G89.29 Other chronic pain; F17.200 Nicotine dependence, unspecified, uncomplicated; Z79.84 Long term (current) use of oral hypoglycemic drugs; Z79.899 Other long term (current) drug therapy
CPT/HCPCS: 74177; 80048; 80076; 82550; 83690; 85025; 87486; 87581; 87633; 87798; 93005; 99285; J1885; J2765; Q9967

== ENCOUNTER → 2023-04-19 | Outpatient (CLI) | payer OTHER, MEDICAID ==
[2023-04-19 15:00] LABS: BASO % 0.3 % (0.0-1.0); EOS # 0.5 10^3/uL (0.0-0.5); EOS % 3.5 % (0.0-3.0); HEMATOCRIT 44.2 % (36.0-47.0); HEMOGLOBIN 13.8 g/dl (12.0-15.5); LYMPH # 4.1 10^3/uL (1.5-5.0); LYMPH % 27.2 % (24.0-44.0); MEAN CORPUSCULAR HGB CONC 31.2 g/dl (32.0-36.5); MEAN CORPUSCULAR VOLUME 92.9 fl (80.0-96.0); MONO # 1.1 10^3/uL (0.0-0.8); MONO % 7.1 % (2.0-8.0); NEUTROPHILS # 9.3 10^3/uL (1.5-8.5); NEUTROPHILS % 61.4 % (36.0-66.0); PLATELET COUNT, AUTOMATED 297 10^3/uL (150-450); RED BLOOD COUNT 4.76 10^6/uL (4.00-5.40); WHITE BLOOD COUNT 15.1 10^3/uL (4.0-10.0)
[2023-04-19 15:31] LABS: CREATININE, URINE 128.7 MG/DL; MAU/CREAT RATIO 4.6 MCG/MG (0.0-30.0)
[2023-04-19 15:35] LABS: ALBUMIN 3.8 G/DL (3.2-5.2); ALKALINE PHOSPHATASE 96 U/L (46-116); ALT/SGPT 31 U/L (7.0-40); AST/SGOT 17 U/L (<34); BILIRUBIN,TOTAL 0.2 MG/DL (0.3-1.2); BLOOD UREA NITROGEN 15 MG/DL (9-23); CALCIUM LEVEL 9.3 MG/DL (8.3-10.6); CARBON DIOXIDE LEVEL 30 MMOL/L (20-31); CHLORIDE LEVEL 101 MMOL/L (98-107); CHOLESTEROL LEVEL 185 MG/DL (<200); CHOLESTEROL RISK RATIO 2.37 (<5); CREATININE FOR GFR 0.79 MG/DL (0.55-1.30); GLOMERULAR FILTRATION RATE > 60.0 (>45); GLUCOSE, FASTING 132 MG/DL (74-106); HDL CHOLESTEROL 77.8 MG/DL (>40); LDL CHOLESTEROL 87.8 MG/DL (<100); NON-HDL-C 107.2 MG/DL; POTASSIUM SERUM 5.1 MMOL/L (3.5-5.1); SODIUM LEVEL 138 MMOL/L (136-145); TOTAL PROTEIN 7.3 G/DL (5.7-8.2); TRIGLYCERIDES LEVEL 97 MG/DL (<150)
== END ==
LOC: M WUC 11:15
PROVIDERS: ATTEND Student in an Organized Health Care Education/Training Program
DX: I10 Essential (primary) hypertension (principal); E11.9 Type 2 diabetes mellitus without complications; E78.5 Hyperlipidemia, unspecified

== ENCOUNTER → 2023-04-22 | Outpatient (REF) | payer OTHER, MEDICAID | LOC: M SFHCPLAZ 16:58 | PROVIDERS: ATTEND Student in an Organized Health Care Education/Training Program | DX: R30.0 Dysuria (principal) ==

== ENCOUNTER → 2023-08-08 | Outpatient (CLI) | payer OTHER, MEDICAID ==
[~2023-08-08] MED LIST changes: -RISP-7; +RISP0.5T82
== END ==
LOC: M WUC 13:10
PROVIDERS: ATTEND Student in an Organized Health Care Education/Training Program
DX: M79.641 Pain in right hand (principal)

== ENCOUNTER → 2023-08-30 | Outpatient (CLI) | payer OTHER, MEDICAID | LOC: M SOG 09:01 | PROVIDERS: ATTEND Physician Assistant | DX: M25.541 Pain in joints of right hand (principal) ==

== ENCOUNTER → 2023-09-21 | Outpatient (CLI) | payer OTHER, MEDICAID ==
[2023-09-21 15:58] LABS: LIPASE 115 U/L (12-53)
[2023-09-21 16:01] LABS: ALBUMIN 3.6 G/DL (3.2-5.2); ALKALINE PHOSPHATASE 85 U/L (46-116); ALT/SGPT 38 U/L (7.0-40); AST/SGOT 41 U/L (<34); BILIRUBIN,TOTAL 0.2 MG/DL (0.3-1.2); BLOOD UREA NITROGEN 23 MG/DL (9-23); CALCIUM LEVEL 9.3 MG/DL (8.3-10.6); CARBON DIOXIDE LEVEL 29 MMOL/L (20-31); CHLORIDE LEVEL 106 MMOL/L (98-107); CREATININE FOR GFR 0.94 MG/DL (0.55-1.30); GLOMERULAR FILTRATION RATE > 60.0 (>45); GLUCOSE, FASTING 137 MG/DL (74-106); POTASSIUM SERUM 4.9 MMOL/L (3.5-5.1); SODIUM LEVEL 140 MMOL/L (136-145)
[2023-09-21 16:05] LABS: HEMOGLOBIN A1c 9.8 % (4.0-6.0)
== END ==
LOC: M WUC 10:01
PROVIDERS: ATTEND Student in an Organized Health Care Education/Training Program
DX: E11.65 Type 2 diabetes mellitus with hyperglycemia (principal); E55.9 Vitamin D deficiency, unspecified; K85.80 Other acute pancreatitis without necrosis or infection

== ENCOUNTER → 2023-10-07 | Outpatient (REF) | payer OTHER, MEDICAID | LOC: M SFHCPLAZ 17:39 | PROVIDERS: ATTEND Family Medicine | DX: Z12.11 Encounter for screening for malignant neoplasm of colon (principal); E11.65 Type 2 diabetes mellitus with hyperglycemia; E78.5 Hyperlipidemia, unspecified; M79.641 Pain in right hand ==

== ENCOUNTER → 2023-12-15 | Outpatient (CLI) | payer MEDICAID, OTHER ==
[2023-12-15 08:54] LABS: BASO % 0.3 % (0.0-1.0); EOS # 0.5 10^3/uL (0.0-0.5); EOS % 4.1 % (0.0-3.0); HEMATOCRIT 42.4 % (36.0-47.0); HEMOGLOBIN 13.2 g/dl (12.0-15.5); LYMPH # 3.5 10^3/uL (1.5-5.0); LYMPH % 27.3 % (24.0-44.0); MEAN CORPUSCULAR HEMOGLOBIN 28.6 pg (27.0-33.0); MEAN CORPUSCULAR HGB CONC 31.1 g/dl (32.0-36.5); MEAN CORPUSCULAR VOLUME 91.8 fl (80.0-96.0); MONO # 0.9 10^3/uL (0.0-0.8); MONO % 7.1 % (2.0-8.0); NEUTROPHILS # 7.9 10^3/uL (1.5-8.5); NEUTROPHILS % 60.7 % (36.0-66.0); PLATELET COUNT, AUTOMATED 290 10^3/uL (150-450); RED BLOOD COUNT 4.62 10^6/uL (4.00-5.40)
[2023-12-15 09:28] LABS: ALBUMIN 3.7 G/DL (3.2-5.2); ALKALINE PHOSPHATASE 97 U/L (46-116); ALT/SGPT 33 U/L (7.0-40); AST/SGOT 22 U/L (<34); BILIRUBIN,TOTAL 0.2 MG/DL (0.3-1.2); BLOOD UREA NITROGEN 15 MG/DL (9-23); CALCIUM LEVEL 8.7 MG/DL (8.3-10.6); CARBON DIOXIDE LEVEL 28 MMOL/L (20-31); CHLORIDE LEVEL 106 MMOL/L (98-107); CHOLESTEROL LEVEL 157 MG/DL (<200); CREATININE FOR GFR 0.99 MG/DL (0.55-1.30); GLOMERULAR FILTRATION RATE > 60.0 (>45); GLUCOSE, FASTING 160 MG/DL (74-106); LDL CHOLESTEROL 82.8 MG/DL (<100); POTASSIUM SERUM 5.3 MMOL/L (3.5-5.1); SODIUM LEVEL 137 MMOL/L (136-145); TOTAL PROTEIN 6.6 G/DL (5.7-8.2); TRIGLYCERIDES LEVEL 126 MG/DL (<150)
[2023-12-15 09:29] LABS: THYROID STIMULATING HORMONE 5.219 uIU/ML (0.55-4.78)
[2023-12-15 09:30] LABS: FREE T4 1.07 NG/DL (0.89-1.76)
== END ==
LOC: M LAB 08:15
PROVIDERS: ATTEND Student in an Organized Health Care Education/Training Program
DX: Z12.11 Encounter for screening for malignant neoplasm of colon (principal); E11.65 Type 2 diabetes mellitus with hyperglycemia; E78.5 Hyperlipidemia, unspecified; M79.641 Pain in right hand

== ENCOUNTER → 2023-12-15 | Outpatient (CLI) | payer OTHER, MEDICAID | LOC: M RAD 12:45 | PROVIDERS: ATTEND Internal Medicine | DX: Z53.9 Procedure and treatment not carried out, unspecified reason (principal) ==

== ENCOUNTER → 2023-12-19 | Outpatient (CLI) | payer MEDICAID, OTHER ==
[2023-12-19 17:51] LABS: THYROID STIMULATING HORMONE 3.316 uIU/ML (0.55-4.78)
[2023-12-19 17:52] LABS: FREE T4 1.02 NG/DL (0.89-1.76)
== END ==
LOC: M LAB 15:34
PROVIDERS: ATTEND Internal Medicine
DX: F43.23 Adjustment disorder with mixed anxiety and depressed mood (principal); E11.65 Type 2 diabetes mellitus with hyperglycemia

== ENCOUNTER → 2023-12-23 | Outpatient (REF) | payer OTHER, MEDICAID | LOC: M SFHCPLAZ 11:54 | PROVIDERS: ATTEND Family Medicine | DX: F43.23 Adjustment disorder with mixed anxiety and depressed mood (principal); E11.65 Type 2 diabetes mellitus with hyperglycemia ==

== ENCOUNTER → 2024-05-09 | Outpatient (REF) | payer OTHER, MEDICAID ==
[~2024-05-09] MED LIST changes: +GABA-1172; +GABA-1490 PO; -GABA-282; -GABA600T4 PO
== END ==
LOC: M SFHCPLAZ 21:50
DX: E11.9 Type 2 diabetes mellitus without complications (principal)

== ENCOUNTER → 2024-07-09 | Outpatient (CLI) | payer MEDICARE ==
[2024-07-09 11:48] LABS: HEMOGLOBIN A1c 9.9 % (4.0-6.0)
== END ==
LOC: M PLALAB 09:05
DX: E11.9 Type 2 diabetes mellitus without complications (principal)

== ENCOUNTER 2024-07-26 13:24 | Emergency (ER) | payer MEDICARE, MEDICAID ==
[~2024-07-26] VITALS: Ht 162.6 cm; Wt 68.2 kg
[2024-07-26 13:30] VITALS: BP 141/79; TEMP 97.1; O2SAT 97
[2024-07-26] MEDS ORDERED: JARD1TAB3 (13:33)
[2024-07-26] MEDS ORDERED: VITA200032 (13:33)
[2024-07-26] MEDS ORDERED: SIMV20TA22 (13:33)
[2024-07-26] MEDS ORDERED: BASA100I (13:33)
[2024-07-26] MEDS ORDERED: AMIT100TA (13:33)
== END 2024-07-26 13:38 | disposition left against medical advice (07) ==
LOC: EDBD 13:24 → M ED 13:24
DX: Z53.21 Procedure and treatment not carried out due to patient leaving prior to being seen by health care provider (principal)

== ENCOUNTER → 2024-08-03 | Outpatient (CLI) | payer MEDICARE, MEDICAID ==
[~2024-08-03] MED LIST changes: +AMIT100TA; +BASA100I; +JARD1TAB3; +SIMV20TA22; +VITA200032
== END ==
LOC: M WUC 13:03
PROVIDERS: ATTEND Nurse Practitioner Family
DX: M79.622 Pain in left upper arm (principal)

== ENCOUNTER 2025-03-06 11:04 | Day surgery (SDC) | payer MEDICARE, MEDICAID ==
[~2025-03-06] VITALS: Ht 162.6 cm; Wt 65.3 kg
[~2025-03-06 11:04] MED LIST changes: -AMBI10TA PO; -AMIT100TA; +AMIT100TA PO; +ECOT81TA5 PO; -GABA-1172; +GABA-1172 PO; -JARD1TAB3; +JARD1TAB3 PO; +LANTINJ4 SQ; -SIMV20TA22; +SIMV20TA22 PO; -VITA200032; +VITA200032 PO; +ZOLP-533 PO; +ZOLP10TA11; -ZOLP10TA2
[2025-03-06] MEDS: INSULIN LISPRO (NovoLOG) PER UNIT SC PRN (12:13)
[2025-03-06] MEDS ORDERED: LIDOCAINE 2% 100 MG/5 ML SDV (FOR ANES.) As Ordered ONE (12:43)
[2025-03-06] MEDS ORDERED: ONDANSETRON 4MG 2ML VIAL As Ordered ONE (12:46)
[2025-03-06 12:59] VITALS: TEMP 97.1
[2025-03-06 13:22] VITALS: BP 118/58; O2SAT 96
== END 2025-03-06 13:26 | disposition home or self-care (01) ==
LOC: M OPP 11:04
PROVIDERS: ATTEND Surgery
DX: Z12.11 Encounter for screening for malignant neoplasm of colon (principal); R19.5 Other fecal abnormalities; Z88.5 Allergy status to narcotic agent; Z88.8 Allergy status to other drugs, medicaments and biological substances; Z79.82 Long term (current) use of aspirin; Z79.4 Long term (current) use of insulin; Z79.84 Long term (current) use of oral hypoglycemic drugs; Z79.899 Other long term (current) drug therapy; F17.210 Nicotine dependence, cigarettes, uncomplicated
CPT/HCPCS: G0121; J1815; J2405

== ENCOUNTER → 2025-03-19 | Outpatient (CLI) | payer MEDICARE, MEDICAID | LOC: M RAD 10:12 | DX: Z12.2 Encounter for screening for malignant neoplasm of respiratory organs (principal); F17.210 Nicotine dependence, cigarettes, uncomplicated; J43.9 Emphysema, unspecified; R91.8 Other nonspecific abnormal finding of lung field; I25.10 Atherosclerotic heart disease of native coronary artery without angina pectoris; I70.0 Atherosclerosis of aorta ==

== ENCOUNTER → 2025-03-26 | Outpatient (CLI) | payer MEDICARE | LOC: M WHC 09:49 | DX: Z12.31 Encounter for screening mammogram for malignant neoplasm of breast (principal); Z53.9 Procedure and treatment not carried out, unspecified reason ==

== ENCOUNTER → 2025-03-29 | Outpatient (CLI) | payer MEDICARE ==
[2025-03-29 11:07] LABS: PLATELET COUNT, AUTOMATED 327 10^3/uL (150-450)
[2025-03-29 11:13] LABS: ALT/SGPT 23 U/L (7.0-40); AST/SGOT 19 U/L (<34); CALCIUM LEVEL 9.5 MG/DL (8.3-10.6); CARBON DIOXIDE LEVEL 28 MMOL/L (20-31); CHLORIDE LEVEL 101 MMOL/L (98-107); CREATININE FOR GFR 1.09 MG/DL (0.55-1.30); FREE T4 1.04 NG/DL (0.89-1.76); GLOMERULAR FILTRATION RATE 56.4 (>45); POTASSIUM SERUM 5.3 MMOL/L (3.5-5.1); SODIUM LEVEL 138 MMOL/L (136-145)
== END ==
LOC: M PLALAB 08:25
DX: E11.9 Type 2 diabetes mellitus without complications (principal); E03.9 Hypothyroidism, unspecified

== ENCOUNTER → 2025-04-25 | Outpatient (REF) | payer MEDICARE | LOC: M SFHCPLAZ 18:03 | DX: Z53.9 Procedure and treatment not carried out, unspecified reason (principal); E11.9 Type 2 diabetes mellitus without complications ==